=== PATIENT | male | born 1985 | race Caucasian/White ===

== ENCOUNTER 2021-11-23 05:59 | Emergency (ER) | payer OTHER, SELFPAY ==
--- NOTE | ~2021-11-23 | XR_ITS ---
EXAMINATION: XR CLAVICLE BILATERAL CLINICAL INFORMATION: Fall with pain, greatest on the right. COMPARISON: None TECHNIQUE: 2 views of the clavicles FINDINGS: There is a fracture of the central third of the right clavicle with minimal offset. The acromioclavicular joints are well aligned. The glenohumeral joints appear aligned. The visualized lungs are clear. No pneumothorax. XR/XR clavicle BI IMPRESSION: Medial right clavicular fracture.
[2021-11-23 06:13] VITALS: BP 120/75; PULSE 92; RESP 16; TEMP 37.6; O2SAT 96; BMI 28.6
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
[2021-11-23] MEDS: Ondansetron ODT 4 MG TAB.RAPDIS TRANSLINGU (06:50)
[2021-11-23] MEDS: Ibuprofen 600 MG TABLET PO (06:50)
[2021-11-23] MEDS: oxyCODONE HCl Immed Release 5 MG TABLET 10 MG PO (06:50)
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
[2021-11-23 06:53] VITALS: PULSE 89; RESP 16; O2SAT 96
== END 2021-11-23 07:20 | disposition home or self-care (01) ==
LOC: HO.ED 07:11
PROVIDERS: Emergency Provider Emergency Medicine
DX: S42.021A Displaced fracture of shaft of right clavicle, initial encounter for closed fracture (principal); M25.511 Pain in right shoulder; Y29.XXXA Contact with blunt object, undetermined intent, initial encounter; Y93.9 Activity, unspecified; Y92.9 Unspecified place or not applicable; Y99.9 Unspecified external cause status
CPT/HCPCS: 29105; 73000; 99283; 99284

== ENCOUNTER 2021-12-03 07:43 | Outpatient (REF) | payer OTHER, SELFPAY ==
--- NOTE | ~2021-12-03 | XR_ITS ---
EXAMINATION: XR CLAVICLE, RIGHT CLINICAL INFORMATION: Reason for Exam S42.009A - Fracture of unspecified part of unspecified clavicle, initial encounter for closed fracture. COMPARISON: None TECHNIQUE: Straight AP and cephalad angulated AP views of the right clavicle. FINDINGS: Again seen is an oblique fracture at the junctions of the medial and central thirds of the right clavicle. There is now caudal displacement of the distal fracture fragment by one shaft width. Minimal vertex cephalad angulation. No additional fractures. No articular surface involvement. AC and glenohumeral joints are normal. XR/XR clavicle RT IMPRESSION: Oblique fracture of the right medial clavicular shaft with increased caudal displacement of the distal fragment.
== END 2021-12-03 07:44 | disposition home or self-care (01) ==
LOC: HO.HOSX 07:43
PROVIDERS: Visit Provider Physician Assistant
DX: S42.001A Fracture of unspecified part of right clavicle, initial encounter for closed fracture (principal)
CPT/HCPCS: 73000

== ENCOUNTER 2021-12-30 07:07 | Outpatient (REF) | payer OTHER, SELFPAY ==
--- NOTE | ~2021-12-30 | XR_ITS ---
EXAMINATION: XR CLAVICLE, RIGHT CLINICAL INFORMATION: Clavicle fracture COMPARISON: 12/03/2021 TECHNIQUE: Two views of the right clavicle. FINDINGS: Redemonstrated fracture of the medial to mid right clavicle. The distal fragment remains displaced inferiorly by one shaft width, similar to prior. There has been some interval development of adjacent calcification. Glenohumeral and acromioclavicular joints remain intact. XR/XR clavicle RT IMPRESSION: Displaced fracture of the right clavicle, with similar alignment to 12/03/2021.
== END 2021-12-30 07:08 | disposition home or self-care (01) ==
LOC: HO.HOSX 07:07
PROVIDERS: Visit Provider Physician Assistant
DX: S42.001A Fracture of unspecified part of right clavicle, initial encounter for closed fracture (principal)
CPT/HCPCS: 73000

== ENCOUNTER 2022-02-10 | Outpatient (REF) | payer OTHER, SELFPAY ==
--- NOTE | ~2022-02-10 | XR_ITS ---
EXAMINATION: XR CLAVICLE, RIGHT CLINICAL INFORMATION: Follow-up clavicular fracture. COMPARISON: Prior radiographs, most recently 12/30/2021. TECHNIQUE: Straight AP and cephalad angulated AP views of the right clavicle. FINDINGS: A healing fracture is redemonstrated of the mid right clavicle. The fracture fragments overlap by approximately 2.3 cm. There is abundant, increased callus formation noted. The glenohumeral joint is intact. The acromioclavicular and coracoclavicular intervals are normal. No soft tissue calcification or foreign body is seen. There is no right pneumothorax. XR/XR clavicle RT IMPRESSION: A healing mid right clavicular fracture is seen, in stable alignment. There is good, increased callus formation noted.
== END 2022-02-10 00:01 | disposition home or self-care (01) ==
LOC: HO.HOSX
PROVIDERS: Visit Provider Physician Assistant
DX: S42.001A Fracture of unspecified part of right clavicle, initial encounter for closed fracture (principal); X58.XXXA Exposure to other specified factors, initial encounter; Y93.9 Activity, unspecified; Y92.9 Unspecified place or not applicable; Y99.9 Unspecified external cause status
CPT/HCPCS: 73000